=== PATIENT | male | born 1930 | race Caucasian/White ===

== ENCOUNTER 2017-08-16 09:36 | Emergency (ER) | payer OTHER ==
[~2017-08-16] VITALS: Ht 190.5 cm; Wt 147.4 kg
[2017-08-16] MEDS ORDERED: Zovirax800 MG PO (10:17)
== END 2017-08-16 10:20 | disposition home or self-care (01) ==
LOC: ER 09:36
DX: B00.1 Herpesviral vesicular dermatitis (principal); K13.0 Diseases of lips; E11.9 Type 2 diabetes mellitus without complications; Z88.0 Allergy status to penicillin; Z88.2 Allergy status to sulfonamides; Z88.6 Allergy status to analgesic agent
CPT/HCPCS: 99282